=== PATIENT | female | born 1995 | race Caucasian/White ===

== ENCOUNTER 2017-01-08 11:21 | Emergency (ER) | payer OTHER ==
[~2017-01-08] VITALS: Ht 154.9 cm; Wt 57.2 kg
[2017-01-08 12:16] VITALS: BP 114/70
--- NOTE | 2017-01-08 12:25 | NUR ---
DR IBRAHIM EVALUATING AAO PT AT BEDSIDE
--- NOTE | 2017-01-08 12:28 | NUR ---
PT PRESENTS TO ER W/C/O SORE THROAT AND COUGH. PT STATES SHE WOKE UP THIS AM W/SORE THROAT, BUT HAS BEEN COUGHING X1 WEEKS. PT ALSO STATES SHE IS 10 WEEKS , LMP 10/10/16, EDC 07/20/17. DENIES N/V/D; SKIN IS PINK/WARM/DRY; AAOX4 WITH EVEN AND STEADY GAIT; LUNGS CLEAR BL; HR EVEN AND REGULAR; PT DENIES ANY FEVER, CP, SOB, OR COUGH AT THIS TIME; PATIENT STATES PAIN OF 7/10 AT THIS TIME; VSS; PATIENT POSITIONED FOR COMFORT; HOB ELEVATED; BEDRAILS UP X2; BED DOWN. ER MD MADE AWARE OF PT STATUS.
[2017-01-08 12:35] VITALS: BP 115/73
--- NOTE | 2017-01-08 12:35 | NUR ---
Patient discharged with v/s stable. Written and verbal after care instructions given and explained. Patient alert, oriented and verbalized understanding of instructions. Ambulatory with steady gait. All questions addressed prior to discharge. ID band removed. Patient advised to follow up with PMD. Rx of CHLORASEPTIC, TYLENOL given. Patient educated on indication of medication including possible reaction and side effects. Opportunity to ask questions provided and answered.
== END 2017-01-08 12:35 | disposition home or self-care (01) ==
LOC: MED 11:21
DX: O99.511 Diseases of the respiratory system complicating pregnancy, first trimester (principal); J06.9 Acute upper respiratory infection, unspecified; R05 Cough; Z3A.12 12 weeks gestation of pregnancy
CPT/HCPCS: 99282

== ENCOUNTER 2017-01-19 19:34 | Emergency (ER) | payer OTHER ==
[~2017-01-19] VITALS: Ht 154.9 cm; Wt 54.9 kg
[2017-01-19 19:55] VITALS: BP 112/68
--- NOTE | 2017-01-19 20:37 | NUR ---
Pt placed in bed 7.
--- NOTE | 2017-01-19 20:40 | NUR ---
21 Y/O W/C/O NAUSEA/VOMITING X1 WEEK; RAN OUT OF ZOFRAN MEDICATION; NEEDS REFILL. 14 WEEKS . G-3 P-0 A-2 MISCARRIAGE. NO S/S OF DISTRESS NOTED ER MD MADE AWARE.
--- NOTE | 2017-01-19 20:50 | NUR ---
OTILIA BRITT AT BEDSIDE EVALUATING PT.
[2017-01-19] MEDS ORDERED: ONDANSETRON 4 MG TAB PO ONE (21:00)
[2017-01-19 21:28] VITALS: BP 121/75
--- NOTE | 2017-01-19 21:28 | NUR ---
Patient discharged BY DR PIZARRO with v/s stable. Written and verbal after care instructions given and explained BY ER MD. Patient alert, oriented and verbalized understanding of instructions. Ambulatory with steady gait. All questions addressed prior to discharge. ID band removed. Patient advised to follow up with PMD OR RETURN BACK TO ER IF CONDITION WORSENS. Rx of ZOFRAN given. Patient educated on indication of medication including possible reaction and side effects. Opportunity to ask questions provided and answered.
== END 2017-01-19 21:28 | disposition home or self-care (01) ==
LOC: MED 19:34
DX: O21.9 Vomiting of pregnancy, unspecified (principal); Z3A.14 14 weeks gestation of pregnancy
CPT/HCPCS: 99283; Q0162

== ENCOUNTER 2017-06-20 04:00 | Inpatient (IN) | payer OTHER ==
[~2017-06-20] VITALS: Ht 154.9 cm; Wt 76.2 kg
[2017-06-20] MEDS: NIFEdipine 10 MG CAPLF PO SCH ×5 (01:00→21:00)
[2017-06-20] MEDS: LACTATED RINGERS 1,000 ML IV SCH ×3 (05:28→22:42)
[2017-06-20] MEDS ORDERED: OSC500 PO (05:33)
[2017-06-20] MEDS ORDERED: PREN-546 PO (05:33)
[2017-06-20] MEDS ORDERED: VITA1TAB44 PO (05:33)
[2017-06-20 05:34] VITALS: BP 131/85
[2017-06-20] MEDS: guaiFENesin 20 MG/ML UDC PO PRN ×2 (05:44→21:03)
[2017-06-20 07:47] VITALS: BP 121/64
--- NOTE | 2017-06-20 08:28 | NUR ---
PATIENT HAS BEEN SCREENED AND CATEGORIZED LOW NUTRITION RISK. PATIENT WILL BE SEEN WITHIN 7 DAYS OF ADMISSION. 06/26/[address]
[2017-06-20] MEDS ORDERED: NIFEdipine 10 MG CAPLF ONE ×5 (12:17→20:55)
[2017-06-20] MEDS ORDERED: BETAMETH ACET/BETAMETH NA PH 30 MG/5 ML VIAL IM ONE (12:17)
[2017-06-20] MEDS: BETAMETH ACET/BETAMETH NA PH 30 MG/5 ML VIAL IM SCH (12:27)
[2017-06-21] MEDS ORDERED: BETAMETH ACET/BETAMETH NA PH 30 MG/5 ML VIAL IM ONE (00:26)
[2017-06-21] MEDS: BETAMETH ACET/BETAMETH NA PH 30 MG/5 ML VIAL IM SCH (00:29)
[2017-06-21] MEDS ORDERED: NIFEdipine 10 MG CAPLF ONE ×5 (00:58→17:11)
[2017-06-21] MEDS: AMPICILLIN 1,000 MG in NACL 0.9% MINI-BAG PLUS 50 ML IV SCH ×3 (04:02→23:58)
[2017-06-21] MEDS: guaiFENesin 20 MG/ML UDC PO PRN (04:24)
[2017-06-21] MEDS: NIFEdipine 10 MG CAPLF PO SCH ×2 (05:00→10:37)
[2017-06-21] MEDS: LACTATED RINGERS 1,000 ML IV SCH ×2 (06:47→23:58)
[2017-06-21] MEDS ORDERED: NALBUPHINE HYDROCHLORIDE 10 MG/ML VIAL IVP PRN (07:45)
[2017-06-21] MEDS ORDERED: AMPICILLIN 2,000 MG in NACL 0.9% MINI-BAG PLUS 100 ML IV SCH (07:45)
[2017-06-21] MEDS ORDERED: OXYTOCIN 10 UNITS/ML VIAL IM SCH (07:45)
[2017-06-21] MEDS ORDERED: PROMETHAZINE 25 MG/ML VIAL IVP PRN (07:45)
[2017-06-21] MEDS ORDERED: AMPICILLIN 2,000 MG VIAL ONE (07:50)
[2017-06-21] MEDS ORDERED: MAG SULF 2000 MG/WATER PREMIX 100 ML IV SCH (08:30)
[2017-06-21 08:45] LABS: HEMATOCRIT 32.9 % (36-48); HEMOGLOBIN 10.6 g/dL (12.0-16.0); MEAN CORPUSCULAR HEMOGLOBIN 25 pg (27-31); MEAN CORPUSCULAR HGB CONC 32 g/dL (33-37); MEAN CORPUSCULAR VOLUME 79 fL (80-94); PLATELET COUNT (AUTO) 234 K/uL (140-450); RED BLOOD CELL COUNT(AUTO) 4.18 MIL/uL (4.20-5.40); RED CELL DISTRIBUTION WIDTH 13.1 % (11.6-13.7); WHITE BLOOD COUNT (AUTO) 22.5 K/uL (4.8-10.8)
[2017-06-21 09:02] LABS: LYMPHOCYTES % (MANUAL) 5 % (20-46); MONOCYTES % (MANUAL) 5 % (5-12)
[2017-06-21 09:06] LABS: ANION GAP 18.6 (8-16); CREATININE 0.5 mg/dL (0.6-1.3); POTASSIUM 3.6 mmol/L (3.5-5.1)
[2017-06-21 09:12] LABS: TOTAL BILIRUBIN 0.2 mg/dL (0.0-1.0)
[2017-06-21] MEDS ORDERED: NALBUPHINE 10 MG/ML AMP IVP PRN (09:15)
[2017-06-21] MEDS ORDERED: NALBUPHINE HYDROCHLORIDE 10 MG/ML VIAL ONE (09:16)
[2017-06-21] MEDS ORDERED: MAG SULF 20 GM/H2O PREMIX DRIP 500 ML IV SCH (09:40)
[2017-06-21] MEDS ORDERED: MAG SULF 20 GM/H2O PREMIX DRIP 500 ML IV ONE (10:06)
[2017-06-21] MEDS ORDERED: AMPICILLIN 1,000 MG VIAL ONE ×4 (12:12→23:49)
[2017-06-22] MEDS: guaiFENesin 20 MG/ML UDC PO PRN (02:16)
[2017-06-22] MEDS ORDERED: NALBUPHINE HYDROCHLORIDE 10 MG/ML VIAL ONE (02:58)
[2017-06-22] MEDS ORDERED: AMPICILLIN 1,000 MG VIAL ONE ×2 (04:00→07:24)
[2017-06-22] MEDS ORDERED: PROMETHAZINE 25 MG/ML VIAL ONE (04:39)
[2017-06-22] MEDS: LACTATED RINGERS 1,000 ML IV SCH (08:00)
== END 2017-06-22 08:53 | disposition home or self-care (01) | DRG 566 ==
LOC: MLD 04:00 → OBSVTOIN 04:00 → MFCC 14:10 → MLD 06-21 09:02
PROVIDERS: ADMIT Obstetrics & Gynecology; ATTEND Obstetrics & Gynecology
DX: O98.513 Other viral diseases complicating pregnancy, third trimester (principal); O60.03 Preterm labor without delivery, third trimester; J11.1 Influenza due to unidentified influenza virus with other respiratory manifestations; Z3A.36 36 weeks gestation of pregnancy
CPT/HCPCS: 36415; 76805; 76815; 80053; 83735; 85025; 85610; 85730; 86592; 86762; 86886; 86900; 86901; 87340; 87653-90; J0290; J0702; J2300; J2550; J3475; J7120; Q0092

== ENCOUNTER 2017-06-24 11:20 | Observation (INO) | payer OTHER ==
[~2017-06-24] VITALS: Ht 152.4 cm; Wt 76.2 kg
[~2017-06-24 11:20] MED LIST: OSC500 PO; PREN-546 PO; VITA1TAB44 PO
[2017-06-24 11:50] VITALS: BP 121/80
== END 2017-06-24 14:28 | disposition home or self-care (01) ==
LOC: MLD 11:20
PROVIDERS: ADMIT Obstetrics & Gynecology; ATTEND Obstetrics & Gynecology
DX: O62.9 Abnormality of forces of labor, unspecified (principal); Z3A.00 Weeks of gestation of pregnancy not specified
CPT/HCPCS: 59025; 76815; 81000; G0378; Q0092

== ENCOUNTER 2017-06-27 11:59 | Observation (INO) | payer OTHER ==
[2017-06-27 12:30] VITALS: BP 121/79
== END 2017-06-27 14:00 | disposition home or self-care (01) ==
LOC: MLD 11:59
PROVIDERS: ADMIT Obstetrics & Gynecology; ATTEND Obstetrics & Gynecology
DX: Z34.90 Encounter for supervision of normal pregnancy, unspecified, unspecified trimester (principal); Z3A.00 Weeks of gestation of pregnancy not specified
CPT/HCPCS: 59025; 76815; 81000; G0378; Q0092

== ENCOUNTER 2017-06-30 12:06 | Observation (INO) | payer OTHER ==
[2017-06-30 14:24] VITALS: BP 122/76
== END 2017-06-30 16:00 | disposition home or self-care (01) ==
LOC: MLD 12:06
PROVIDERS: ADMIT Obstetrics & Gynecology; ATTEND Obstetrics & Gynecology
DX: O26.893 Other specified pregnancy related conditions, third trimester (principal); R10.9 Unspecified abdominal pain; Z3A.37 37 weeks gestation of pregnancy
CPT/HCPCS: 59025; 76815; 81000; G0378; Q0092

== ENCOUNTER 2017-07-06 10:03 | Observation (INO) | payer OTHER ==
[~2017-07-06] VITALS: Ht 154.9 cm; Wt 77.1 kg
[2017-07-06 10:31] VITALS: BP 125/83
[2017-07-06] MEDS ORDERED: FERR-252 PO (10:37)
== END 2017-07-06 13:15 | disposition home or self-care (01) ==
LOC: MLD 10:03
PROVIDERS: ADMIT Obstetrics & Gynecology; ATTEND Obstetrics & Gynecology
DX: Z34.90 Encounter for supervision of normal pregnancy, unspecified, unspecified trimester (principal); Z3A.00 Weeks of gestation of pregnancy not specified
CPT/HCPCS: 59025; 76815; 81000; G0378; Q0092

== ENCOUNTER 2017-07-10 12:11 | Observation (INO) | payer OTHER ==
[~2017-07-10] VITALS: Ht 154.9 cm; Wt 77.1 kg
[~2017-07-10 12:11] MED LIST changes: +FERR-252 PO; -OSC500 PO; -VITA1TAB44 PO
[2017-07-10 12:37] VITALS: BP 131/84
== END 2017-07-10 16:10 | disposition home or self-care (01) ==
LOC: MLD 12:11
PROVIDERS: ADMIT Obstetrics & Gynecology; ATTEND Obstetrics & Gynecology
DX: O36.8190 Decreased fetal movements, unspecified trimester, not applicable or unspecified (principal); Z3A.00 Weeks of gestation of pregnancy not specified
CPT/HCPCS: 76819; G0378; Q0092